=== PATIENT | female | born 1990 ===

== ENCOUNTER → 2018-02-10 | Emergency (ER) | payer OTHER ==
[~2018-02-10] VITALS: Ht 165.1 cm; Wt 65.8 kg
[~2018-02-10] MED LIST: CONEX TABLET1 EACH; PEPCID40 MG PO; PHENERGAN25 MG PO; PRENATAL CAPSU1 EACH PO
== END | disposition left against medical advice (07) ==
LOC: ER 22:55
DX: Z53.20 Procedure and treatment not carried out because of patient's decision for unspecified reasons (principal)